=== PATIENT | male | born 1970 | race Caucasian/White ===

== ENCOUNTER → 2025-11-11 16:12 | Outpatient (REF) | payer BC, SELFPAY | LOC: PAVMRI 16:12 | PROVIDERS: ATTENDING PHYSICIAN Physician Assistant; FAMILY PHYSICIAN Internal Medicine | DX: M54.12 Radiculopathy, cervical region (principal); M79.621 Pain in right upper arm; M79.622 Pain in left upper arm; M62.81 Muscle weakness (generalized) | CPT/HCPCS: 72141 ==